=== PATIENT | male | born 1990 | race African-American/Black ===

== ENCOUNTER 2019-12-31 21:38 | Emergency (ER) | payer SELFPAY ==
[2019-12-31 22:01] VITALS: BP 121/74
[2019-12-31] MEDS ORDERED: CLINDAMYCIN HCL 150 MG CAPSULE PO ONE (22:14)
[2019-12-31] MEDS ORDERED: HYDROCODONE/ACETAMINOPHEN 5-325 MG (6 TAB/ER DISP) PO PRN (22:14)
--- NOTE | 2019-12-31 22:18 | ER Document Report ---
HPI - HPI Patient complains to provider of: Toothache Time Seen by Provider: 12/31/19 22:14 Quality of pain: Achy Pain Level: 5 Context: Patient presents complaining of dental pain for the past 3 days. Patient denies any fever. Associated Symptoms: denies: Fever, Headache, Sore throat Exacerbated by: Denies Relieved by: Denies Similar symptoms previously: Yes Recently seen / treated by doctor: No - ROS ROS below otherwise negative: Yes Systems Reviewed and Negative: Yes All other systems reviewed and negative - CONSTITUTIONAL Constitutional: DENIES: Fever, Chills - EENT EENT: DENIES: Ear Pain Notes: Dental pain - GASTROINTESTINAL Gastrointestinal: DENIES: Nausea, Patient vomiting - DERM Skin Color: Normal Skin Problems: None Past Medical History - General Information source: Patient - Social History Smoking Status: Never Smoker Frequency of alcohol use: None Drug Abuse: None Occupation: None Family History: Reviewed & Not Pertinent Patient has homicidal ideation: No - Medical History Medical History: Negative Surgical Hx: Negative Vertical Provider Document - CONSTITUTIONAL Agree With Documented VS: Yes Exam Limitations: No Limitations General Appearance: WD/WN, No Apparent Distress - HEENT HEENT: Atraumatic, Normocephalic. negative: Pharyngeal Tenderness, Pharyngeal Erythema, Tympanic Membrane Red, Tympanic Membrane Bulging Mouth Diagram: 1 - Dental decay, tenderness, no trismus, no potential airway compromise - NECK Neck: Supple. negative: Lymphadenopathy-Left, Lymphadenopathy-Right Notes: Submental lymph node enlargement - RESPIRATORY Respiratory: Breath Sounds Normal, No Respiratory Distress - CARDIOVASCULAR Cardiovascular: Regular Rate, Regular Rhythm - BACK Back: Normal Inspection - MUSCULOSKELETAL/EXTREMETIES Musculoskeletal/Extremeties: GISELA RASMUSSEN - NEURO Level of Consciousness: Awake, Alert, Appropriate Motor/Sensory: No Motor Deficit - DERM Integumentary: Warm, Dry, No Rash Course - Re-evaluation Re-evalutation: 12/31/19 22:16 Patient with dental decay and tenderness, no gingival abscess, no potential airway compromise. Patient with mild swelling to submental lymph node, no concern for Ravinder's angina - Vital Signs Vital signs: Temp Pulse Resp BP Pulse Ox 98.9 F 77 18 121/74 100 12/31/19 21:59 12/31/19 21:59 12/31/19 21:59 12/31/19 21:59 12/31/19 21:59 Discharge - Discharge Clinical Impression: Toothache Condition: Stable Disposition: HOME, SELF-CARE Instructions: Clindamycin ([facility]), Toothache ([facility]), Oral Narcotic Medication ([facility]) Additional Instructions: Return immediately for any new or worsening symptoms Followup with your primary care provider, call tomorrow to make a followup appointment Follow-up with a dental care provider Prescriptions: Clindamycin HCl 300 mg PO TID #21 capsule Naproxen [Naprosyn 250 Nmg Tablet] 1 tab PO BID #14 tablet Referrals: [facility] [Provider Group] - Follow up as needed
== END 2019-12-31 22:26 | disposition home or self-care (01) ==
LOC: ER 21:38
DX: K08.89 Other specified disorders of teeth and supporting structures (principal)
CPT/HCPCS: 99283

== ENCOUNTER 2020-01-02 12:33 | Emergency (ER) | payer SELFPAY ==
[2020-01-02 12:43] VITALS: BP 115/80
== END 2020-01-02 14:00 | disposition left against medical advice (07) ==
LOC: ER 12:33
DX: K08.89 Other specified disorders of teeth and supporting structures (principal)